=== PATIENT | male | born 1955 | race Caucasian/White ===

== ENCOUNTER 2018-06-17 19:57 | Inpatient (IN) | payer OTHER ==
[~2018-06-17] VITALS: Ht 177.8 cm; Wt 109.0 kg
[2018-06-17] MEDS ORDERED: ondansetron/PF 4mg/2ml inj IV ONE (20:20)
[2018-06-17 20:36] LABS: BASOPHILS # (AUTO) 0.1 X10'3 (0-0.2); BASOPHILS % (AUTO) 0.6 % (0-1); EOSINOPHILS # (AUTO) 0.4 X10'3 (0-0.9); EOSINOPHILS % (AUTO) 3.4 % (0-6); HEMATOCRIT 43.7 % (42.0-52.0); HEMOGLOBIN 15.2 g/dl (14.0-17.9); LYMPHOCYTES # (AUTO) 1.9 X10'3 (1.1-4.8); LYMPHOCYTES % (AUTO) 17.6 % (21-51); MEAN CORPUSCULAR HEMOGLOBIN 28.3 PG (27.0-31.0); MEAN CORPUSCULAR HGB CONC 34.7 % (33.0-36.5); MEAN CORPUSCULAR VOLUME 81.5 FL (78-98); MEAN PLATELET VOLUME 8.5 FL (7.4-10.4); MONOCYTES # (AUTO) 0.8 X10'3 (0-0.9); MONOCYTES % (AUTO) 7.5 % (2-12); NEUTROPHILS # (AUTO) 7.7 X10'3 (1.8-7.7); NEUTROPHILS % (AUTO) 70.9 % (42-75); PLATELET COUNT 226 X10'3 (140-440); RED BLOOD COUNT 5.37 X10'6 (4.70-6.10); RED CELL DISTRIBUTION WIDTH 13.7 % (11.5-14.5); WHITE BLOOD COUNT 10.9 X10'3 (4.5-11.0)
[2018-06-17 20:46] LABS: PARTIAL THROMBOPLASTIN TIME 24 SECONDS (22-32); PROTHROMBIN TIME 10.7 SECONDS (9.0-12.0)
[2018-06-17 20:49] LABS: ALANINE AMINOTRANSFERASE 46 U/L (12-78); ALBUMIN 4.1 G/DL (3.4-5.0); ALKALINE PHOSPHATASE 105 IU/L (46-116); ANION GAP 14 (8-16); ASPARTATE AMINO TRANSFERASE 23 U/L (10-37); BILIRUBIN,TOTAL 0.5 MG/DL (0.1-1.0); BLOOD UREA NITROGEN 22 MG/DL (7-18); BUN/CREATININE RATIO 14.8 (5.4-32.0); CALCIUM 9.6 MG/DL (8.5-10.1); CHLORIDE 102 MMOL/L (99-107); CREATININE 1.49 MG/DL (0.60-1.10); GLUCOSE 164 MG/DL (70-104); POTASSIUM 3.9 MMOL/L (3.5-5.1); SODIUM 141 MMOL/L (135-145); TOTAL CARBON DIOXIDE 25.2 MMOL/L (24-32); TOTAL PROTEIN 8.1 G/DL (6.4-8.2); eGFR 48 ML/MIN
[2018-06-17] MEDS ORDERED: sucralfate 1gm/10ml UD suspension PO STA (20:54)
[2018-06-17] MEDS ORDERED: LIDOcaine Viscous 15ml cup PO ONE (20:55)
[2018-06-17] MEDS ORDERED: mag hydrox/Alum hydrox/simeth 30ml oral suspension PO ONE (20:55)
[2018-06-17] MEDS ORDERED: normal saline 1000ML IV soln IVB ONE (21:10)
[2018-06-17] MEDS ORDERED: iohexol 350MG/ML 100ml bottle IV ONE (21:18)
[2018-06-17] MEDS: morphine 4 MG/ML inj SYRINge IV PRN (21:21)
[2018-06-17] MEDS ORDERED: HYDROcodone/acetaminophen 10/325mg tab PO ONE (22:00)
[2018-06-17] MEDS ORDERED: ketorolac trometh. 30mg/ml inj. IV ONE (22:00)
[2018-06-17] MEDS ORDERED: morphine 4 MG/ML inj SYRINge IV ONE (22:00)
[2018-06-17] MEDS ORDERED: HYDR-565 PO (22:02)
[2018-06-17 22:12] LABS: CLARITY,URINE CLEAR (Clear); COLOR,URINE YELLOW (Yellow); GLUCOSE, URINE NEGATIVE (Neg); KETONES,URINE TRACE mg/dl (Neg); LEUKOCYTE ESTERASE ,URINE NEGATIVE (Neg); NITRITES, URINE NEGATIVE (Neg); OCCULT BLOOD,URINE MODERATE (Neg); PROTEIN,URINE TRACE mg/dl (Neg); UROBILINOGEN,URINE 0.2 E.U/dL (0.2-1.0)
[2018-06-17 22:22] LABS: UA COLLECTION TYPE URINAL
[2018-06-17 22:23] LABS: WBC,URINE NONE SEEN /HPF (0-4)
[2018-06-17 22:24] LABS: BACTERIA,URINE NONE SEEN /HPF (Neg); RBC,URINE 0-2 /HPF (0-2); SQUAMOUS EPITHELIAL CELL,UR NONE SEEN /LPF (FEW)
[2018-06-18] VITALS (21 sets, daily range): BP systolic 103–193; BP diastolic 52–84
[2018-06-18] MEDS ORDERED: LISI10TA4 PO (01:03)
[2018-06-18] MEDS ORDERED: ATOR10TA PO ×2 (01:03→09:13)
[2018-06-18] MEDS ORDERED: GLIP10TA11 PO (01:03)
[2018-06-18] MEDS ORDERED: INSU100V30 SQ (01:03)
[2018-06-18] MEDS: morphine 4 MG/ML inj SYRINge IV PRN ×3 (02:21→19:08)
[2018-06-18] MEDS ORDERED: dextrose ORAL solution 15 GM/59 ML bottle PO PRN ×2 (04:15)
[2018-06-18] MEDS ORDERED: magnesium 1gm/100ml D5W IVPB 100 ML IV PRN (04:15)
[2018-06-18] MEDS ORDERED: potassium Cl 40MEQ/NS 500ml 500 ML IV PRN ×2 (04:15)
[2018-06-18] MEDS ORDERED: insulin Lispro (HumaLOG) vial - multi-dose SQ SCH (04:15)
[2018-06-18] MEDS ORDERED: acetaminophen 325mg tablet PO PRN (04:15)
[2018-06-18] MEDS ORDERED: ipratropium/albuterol 3ml nebule NEB PRN (04:15)
[2018-06-18] MEDS ORDERED: ondansetron/PF 4mg/2ml inj IV PRN ×2 (04:15→17:40)
[2018-06-18] MEDS ORDERED: dextrose 50%-water 50ml dispensing syringe IV PRN ×2 (04:15)
[2018-06-18] MEDS ORDERED: magnesium hydroxide 30ml (MOM) UD suspension PO PRN (04:15)
[2018-06-18] MEDS ORDERED: potassium Cl 20 mEq SR tablet PO PRN ×2 (04:15)
[2018-06-18] MEDS ORDERED: glucagon, human recombinant 1mg kit SUBCUT PRN (04:15)
[2018-06-18] MEDS ORDERED: morphine 4 MG/ML inj SYRINge IV PRN ×3 (04:15→17:40)
[2018-06-18] MEDS ORDERED: MESSAGE TO PHARMACY PO ONE (04:15)
[2018-06-18] MEDS ORDERED: magnesium 4gm in 100ml NS 100 ML IV PRN (04:15)
[2018-06-18] MEDS: normal saline 1000ml 1,000 ML IV SCH ×3 (05:30→21:05)
[2018-06-18] MEDS: K and/or MAG REPLACEMENT MC SCH (06:33)
[2018-06-18] MEDS: enoxaparin 40mg/0.4ml syringe SQ SCH (08:00)
[2018-06-18] MEDS: lisinopril 10 MG tablet PO SCH (08:26)
[2018-06-18] MEDS ORDERED: pneumococcal 23-VAL P-sac vacc 25 mcg/0.5ml vial IMVAC ONE (09:10)
[2018-06-18] MEDS ORDERED: LANTUS SQ (09:15)
[2018-06-18] MEDS ORDERED: iohexol 300 MG/1 ML 50ml polymer ONE (15:58)
[2018-06-18] MEDS ORDERED: sevoflurane 250ml liquid IH ONE (16:54)
[2018-06-18] MEDS ORDERED: midazolam 2 mg/2 ml injection ONE (16:58)
[2018-06-18] MEDS ORDERED: fentaNYL/PF 50MCG/1 ML 2ML syringe ONE (16:58)
[2018-06-18] MEDS ORDERED: propofol inj 20 ML IV ONE (16:58)
[2018-06-18] MEDS ORDERED: ringers solution, lacted 1,000 ML IV SCH (17:38)
[2018-06-18] MEDS ORDERED: proCHLORperazine 10 MG/2 ml inj IV PRN (17:40)
[2018-06-18] MEDS ORDERED: meperidine/PF 25mg/ml syringe IV PRN ×3 (17:40)
[2018-06-18] MEDS ORDERED: insulin glargine (Lantus) pen - multi-dose SQ SCH (21:00)
[2018-06-19 03:54] VITALS: BP 112/66
[2018-06-19] MEDS: normal saline 1000ml 1,000 ML IV SCH (04:49)
[2018-06-19 05:46] LABS: BASOPHILS # (AUTO) 0.1 X10'3 (0-0.2); BASOPHILS % (AUTO) 0.6 % (0-1); EOSINOPHILS # (AUTO) 0.2 X10'3 (0-0.9); EOSINOPHILS % (AUTO) 2.5 % (0-6); HEMATOCRIT 36.8 % (42.0-52.0); HEMOGLOBIN 12.8 g/dl (14.0-17.9); LYMPHOCYTES # (AUTO) 2.1 X10'3 (1.1-4.8); LYMPHOCYTES % (AUTO) 26.3 % (21-51); MEAN CORPUSCULAR HEMOGLOBIN 28.9 PG (27.0-31.0); MEAN CORPUSCULAR HGB CONC 34.8 % (33.0-36.5); MEAN CORPUSCULAR VOLUME 83.1 FL (78-98); MEAN PLATELET VOLUME 8.6 FL (7.4-10.4); MONOCYTES # (AUTO) 0.6 X10'3 (0-0.9); MONOCYTES % (AUTO) 7.7 % (2-12); NEUTROPHILS % (AUTO) 62.9 % (42-75); PLATELET COUNT 159 X10'3 (140-440); RED BLOOD COUNT 4.44 X10'6 (4.70-6.10)
[2018-06-19 06:31] LABS: ALANINE AMINOTRANSFERASE 26 U/L (12-78); ALBUMIN 2.9 G/DL (3.4-5.0); ALBUMIN/GLOBULIN RATIO 0.9 (1.1-1.5); ALKALINE PHOSPHATASE 71 IU/L (46-116); ANION GAP 6 (8-16); ASPARTATE AMINO TRANSFERASE 15 U/L (10-37); BILIRUBIN,TOTAL 0.4 MG/DL (0.1-1.0); BLOOD UREA NITROGEN 16 MG/DL (7-18); BUN/CREATININE RATIO 13.9 (5.4-32.0); CALCIUM 8.3 MG/DL (8.5-10.1); CHLORIDE 109 MMOL/L (99-107); CREATININE 1.15 MG/DL (0.60-1.10); GLUCOSE 117 MG/DL (70-104); MAGNESIUM 2.1 MG/DL (1.5-2.4); POTASSIUM 3.9 MMOL/L (3.5-5.1); SODIUM 141 MMOL/L (135-145); TOTAL CARBON DIOXIDE 26.3 MMOL/L (24-32); TOTAL PROTEIN 6.3 G/DL (6.4-8.2); eGFR 65 ML/MIN
[2018-06-19 07:05] VITALS: BP 125/73
[2018-06-19] MEDS: K and/or MAG REPLACEMENT MC SCH (07:39)
[2018-06-19] MEDS: lisinopril 10 MG tablet PO SCH (07:46)
[2018-06-19] MEDS: enoxaparin 40mg/0.4ml syringe SQ SCH (07:46)
[2018-06-19 11:12] VITALS: BP 132/68
== END 2018-06-19 11:31 | disposition home or self-care (01) | DRG 669 ==
LOC: ER 19:57 → ED HOLD 06-18 04:11 → CMPBEDREQ 06-18 05:42 → ORTHO 4S 06-18 06:00 → SUR 3N 06-18 18:51
PROVIDERS: ADMIT Family Medicine; ATTEND Internal Medicine
PROC: B32T1ZZ Computerized Tomography (CT Scan) of Left Pulmonary Artery using Low Osmolar Contrast (ICD-10-PCS; 2018-06-17)
PROC: B3201ZZ Computerized Tomography (CT Scan) of Thoracic Aorta using Low Osmolar Contrast (ICD-10-PCS; 2018-06-17)
PROC: B32S1ZZ Computerized Tomography (CT Scan) of Right Pulmonary Artery using Low Osmolar Contrast (ICD-10-PCS; 2018-06-17)
PROC: B4201ZZ Computerized Tomography (CT Scan) of Abdominal Aorta using Low Osmolar Contrast (ICD-10-PCS; 2018-06-17)
PROC: B4241ZZ Computerized Tomography (CT Scan) of Superior Mesenteric Artery using Low Osmolar Contrast (ICD-10-PCS; 2018-06-17)
PROC: B4281ZZ Computerized Tomography (CT Scan) of Bilateral Renal Arteries using Low Osmolar Contrast (ICD-10-PCS; 2018-06-17)
PROC: B4211ZZ Computerized Tomography (CT Scan) of Celiac Artery using Low Osmolar Contrast (ICD-10-PCS; 2018-06-17)
PROC: 0TC78ZZ Extirpation of Matter from Left Ureter, Via Natural or Artificial Opening Endoscopic (ICD-10-PCS; 2018-06-18)
PROC: BT1F1ZZ Fluoroscopy of Left Kidney, Ureter and Bladder using Low Osmolar Contrast (ICD-10-PCS; principal; 2018-06-18 16:54)
DX: N13.2 Hydronephrosis with renal and ureteral calculous obstruction (principal); J44.9 Chronic obstructive pulmonary disease, unspecified; E11.9 Type 2 diabetes mellitus without complications; E78.00 Pure hypercholesterolemia, unspecified; E78.5 Hyperlipidemia, unspecified; I10 Essential (primary) hypertension; I25.10 Atherosclerotic heart disease of native coronary artery without angina pectoris; N21.0 Calculus in bladder; N32.89 Other specified disorders of bladder; Z96.653 Presence of artificial knee joint, bilateral; E66.9 Obesity, unspecified; N40.0 Benign prostatic hyperplasia without lower urinary tract symptoms; Z28.21 Immunization not carried out because of patient refusal; Z88.5 Allergy status to narcotic agent; Z88.8 Allergy status to other drugs, medicaments and biological substances; Z79.899 Other long term (current) drug therapy; Z79.4 Long term (current) use of insulin; Z87.891 Personal history of nicotine dependence; Z80.43 Family history of malignant neoplasm of testis; Z82.49 Family history of ischemic heart disease and other diseases of the circulatory system; Z68.34 Body mass index [BMI] 34.0-34.9, adult
CPT/HCPCS: 96374; 96375; 96376; 99285; Z7506; 36415; 71045; 71275; 72192; 74174; 76000; 80053; 81001; 82948; 83036; 83735; 84484; 85025; 85610; 85730; 87070; 90732; 93005; 94760; A4402; C1758; C1769; J1650; J1815; J1885; J2250; J2270; J2405; J2704; J3010; J7030; J7120; Q9967

== ENCOUNTER 2020-03-01 08:50 | Outpatient (CLI) | payer BC ==
[~2020-03-01] VITALS: Ht 177.8 cm; Wt 107.0 kg
[~2020-03-01 08:50] MED LIST: ATOR10TA PO; GLIP10TA11 PO; INSU100V30 SQ; LANTUS SQ; LISI10TA4 PO
[2020-03-01] MEDS ORDERED: albuterol 2.5 MG/3 ML nebule NEB PRN (09:35)
== END 2020-03-01 23:59 | disposition home or self-care (01) ==
LOC: RT 08:50
PROVIDERS: ATTEND Internal Medicine Pulmonary Disease
DX: J44.9 Chronic obstructive pulmonary disease, unspecified (principal)
CPT/HCPCS: 94060; 94727; 94729; 94760

== ENCOUNTER 2020-09-01 11:33 | Day surgery (SDC) | payer BC ==
[2020-08-28 10:51] LABS: BASOPHILS # (AUTO) 0.1 X10'3 (0-0.2); BASOPHILS % (AUTO) 1.3 % (0-1); EOSINOPHILS # (AUTO) 0.3 X10'3 (0-0.9); EOSINOPHILS % (AUTO) 4.4 % (0-6); HEMATOCRIT 45.1 % (42.0-52.0); HEMOGLOBIN 15.6 g/dl (14.0-17.9); LYMPHOCYTES # (AUTO) 1.8 X10'3 (1.1-4.8); LYMPHOCYTES % (AUTO) 24.7 % (21-51); MEAN CORPUSCULAR HEMOGLOBIN 29.2 PG (27.0-31.0); MEAN CORPUSCULAR HGB CONC 34.7 g/dL (33.0-36.5); MEAN CORPUSCULAR VOLUME 84.2 FL (78-98); MEAN PLATELET VOLUME 8.2 FL (7.4-10.4); MONOCYTES # (AUTO) 0.7 X10'3 (0-0.9); MONOCYTES % (AUTO) 9.1 % (2-12); NEUTROPHILS # (AUTO) 4.4 X10'3 (1.8-7.7); NEUTROPHILS % (AUTO) 60.5 % (42-75); PLATELET COUNT 202 X10'3 (140-440); RED BLOOD COUNT 5.36 X10'6 (4.70-6.10); RED CELL DISTRIBUTION WIDTH 13.9 % (11.5-14.5); WHITE BLOOD COUNT 7.3 X10'3 (4.5-11.0)
[2020-08-28 11:04] LABS: ALBUMIN 3.9 G/DL (3.4-5.0); ANION GAP 8 (8-16); BLOOD UREA NITROGEN 13 MG/DL (7-18); BUN/CREATININE RATIO 13.1 (5.4-32.0); CALCIUM 9.5 MG/DL (8.5-10.1); CHLORIDE 105 MMOL/L (99-107); CREATININE 0.99 MG/DL (0.60-1.10); GLUCOSE 184 MG/DL (70-104); SODIUM 138 MMOL/L (135-145); TOTAL CARBON DIOXIDE 25.1 MMOL/L (24-32); eGFR 76 ML/MIN
[2020-08-28 11:05] LABS: PARTIAL THROMBOPLASTIN TIME 25 SECONDS (22-32)
[2020-09-01] VITALS (8 sets, daily range): BP systolic 125–147; BP diastolic 67–93
[~2020-09-01] VITALS: Ht 177.8 cm; Wt 112.9 kg
[~2020-09-01 11:33] MED LIST changes: +IPRA3AMP31 IH; -LISI10TA4 PO; +METF500T PO
[2020-09-01] MEDS ORDERED: NITR0.4T51 SL (12:04)
[2020-09-01] MEDS ORDERED: normal saline 1000ml 1,000 ML IV SCH (12:05)
[2020-09-01] MEDS ORDERED: diphenhydrAMINE 25mg capsule PO PRN (12:05)
[2020-09-01] MEDS ORDERED: LORazepam 0.5 MG tablet PO PRN (12:05)
[2020-09-01] MEDS ORDERED: LISI-600 PO (12:07)
[2020-09-01] MEDS ORDERED: ALBU18HF2 INH (12:07)
[2020-09-01] MEDS ORDERED: SEMA0.25 (12:13)
[2020-09-01] MEDS ORDERED: NPH,100V SQ (12:14)
[2020-09-01] MEDS ORDERED: UMEC1DIS (12:15)
[2020-09-01] MEDS ORDERED: nitroGLYCERIN-Tridil 50MG/D5W 250 ML IV ONE (13:32)
[2020-09-01] MEDS ORDERED: verapamil 2.5 mg/ml inj IV ONE (13:32)
[2020-09-01] MEDS ORDERED: diphenhydrAMINE 50 mg/ml inj ONE (13:32)
[2020-09-01] MEDS ORDERED: fentaNYL/PF 50MCG/1 ML 2ML syringe ONE (13:33)
[2020-09-01] MEDS ORDERED: heparin 1,000unit/ml 10ml vial 10 ML ONE (13:33)
[2020-09-01] MEDS ORDERED: iohexol 350MG/ML 100ml bottle IV ONE (13:33)
[2020-09-01] MEDS ORDERED: LIDOcaine 1% (10mg/ml)w/preservative injection 20ml MDV ONE (13:33)
[2020-09-01] MEDS ORDERED: midazolam 2 mg/2 ml injection ONE ×2 (13:33→13:51)
--- NOTE | 2020-09-01 17:10 | NUR ---
2 mL of air removed every 15 minutes from right radial Vasband starting at 1510. There were no signs of a hematoma or bleeding at any of these times or after removal of Vascband. Patient and his , Lea were educated on radial site care, signs of hematoma/bleeding/infection/shower/weight restrictions. Education regarding conscious sedation was also given, patients Lea is driving home. Patient was also informed of his follow up appt with Dr. Rider on 10/06/2020 at 1:20 pm. All questions have been answered at this time. Patient was wheeled out to the car and assisted in. All of patients belongings were taken with him.
== END 2020-09-01 17:10 | disposition home or self-care (01) ==
LOC: SSTAY O 11:33
PROVIDERS: ATTEND Internal Medicine Interventional Cardiology
DX: R94.39 Abnormal result of other cardiovascular function study (principal); R07.89 Other chest pain; I10 Essential (primary) hypertension; E78.5 Hyperlipidemia, unspecified; E11.59 Type 2 diabetes mellitus with other circulatory complications; J44.9 Chronic obstructive pulmonary disease, unspecified; I25.10 Atherosclerotic heart disease of native coronary artery without angina pectoris; Z79.01 Long term (current) use of anticoagulants; Z79.899 Other long term (current) drug therapy; Z87.891 Personal history of nicotine dependence; Z79.4 Long term (current) use of insulin; Z88.5 Allergy status to narcotic agent; Z88.8 Allergy status to other drugs, medicaments and biological substances; Z82.49 Family history of ischemic heart disease and other diseases of the circulatory system; Z72.89 Other problems related to lifestyle
CPT/HCPCS: 36415; 80048; 82948; 85025; 85610; 85730; 93005; 93458; 99152; C1769; C1894; J1200; J1644; J2001; J2250; J3010; Q9967; A4620; A5120; J3490

== ENCOUNTER 2021-04-11 07:38 | Day surgery (SDC) | payer BC ==
[2021-04-06 11:48] LABS: BASOPHILS # (AUTO) 0.1 X10'3 (0-0.2); BASOPHILS % (AUTO) 1.5 % (0-1); EOSINOPHILS # (AUTO) 0.3 X10'3 (0-0.9); EOSINOPHILS % (AUTO) 3.8 % (0-6); HEMATOCRIT 46.5 % (42.0-52.0); HEMOGLOBIN 16.5 g/dl (14.0-17.9); LYMPHOCYTES # (AUTO) 1.9 X10'3 (1.1-4.8); LYMPHOCYTES % (AUTO) 25.9 % (21-51); MEAN CORPUSCULAR HEMOGLOBIN 29.6 PG (27.0-31.0); MEAN CORPUSCULAR HGB CONC 35.4 g/dL (33.0-36.5); MEAN CORPUSCULAR VOLUME 83.6 FL (78-98); MEAN PLATELET VOLUME 8.7 FL (7.4-10.4); MONOCYTES # (AUTO) 0.6 X10'3 (0-0.9); MONOCYTES % (AUTO) 8.3 % (2-12); NEUTROPHILS # (AUTO) 4.5 X10'3 (1.8-7.7); NEUTROPHILS % (AUTO) 60.5 % (42-75); PLATELET COUNT 191 X10'3 (140-440); RED BLOOD COUNT 5.56 X10'6 (4.70-6.10); RED CELL DISTRIBUTION WIDTH 13.6 % (11.5-14.5); WHITE BLOOD COUNT 7.5 X10'3 (4.5-11.0)
[2021-04-06 12:07] LABS: PARTIAL THROMBOPLASTIN TIME 26 SECONDS (22-32)
[2021-04-06 12:09] LABS: ALANINE AMINOTRANSFERASE 42 U/L (12-78); ALBUMIN 3.8 G/DL (3.4-5.0); ALBUMIN/GLOBULIN RATIO 0.9 (1.1-1.5); ALKALINE PHOSPHATASE 129 IU/L (46-116); ANION GAP 9 (8-16); BILIRUBIN,TOTAL 0.6 MG/DL (0.1-1.0); BLOOD UREA NITROGEN 17 MG/DL (7-18); BUN/CREATININE RATIO 17.2 (5.4-32.0); CHLORIDE 106 MMOL/L (99-107); CREATININE 0.99 MG/DL (0.60-1.10); SODIUM 139 MMOL/L (135-145); TOTAL CARBON DIOXIDE 24.3 MMOL/L (24-32); TOTAL PROTEIN 7.9 G/DL (6.4-8.2); eGFR 76 ML/MIN
[2021-04-06 12:19] LABS: GLUCOSE 206 MG/DL (70-104); POTASSIUM 4.1 MMOL/L (3.5-5.1)
[2021-04-06 12:32] LABS: ASPARTATE AMINO TRANSFERASE 22 U/L (10-37)
[~2021-04-11] VITALS: Ht 177.8 cm; Wt 106.8 kg
[2021-04-11] VITALS (13 sets, daily range): BP systolic 122–157; BP diastolic 61–86
[~2021-04-11 07:38] MED LIST changes: +ALBU18HF2 INH; -GLIP10TA11 PO; -LANTUS SQ; +LISI20TA28 PO; +NITR0.4T51 SL; +NPH,100V SQ; +SEMA0.25; +UMEC1DIS
[2021-04-11] MEDS ORDERED: nitroGLYCERIN 0.4mg SUBLingual tab SL PRN (08:15)
[2021-04-11] MEDS ORDERED: LORazepam 0.5 MG tablet PO PRN (08:15)
[2021-04-11] MEDS ORDERED: normal saline 1,000 ML IV SCH (08:15)
[2021-04-11] MEDS ORDERED: diphenhydrAMINE 25mg capsule PO PRN (08:15)
[2021-04-11] MEDS ORDERED: BIOTIN PO (08:37)
[2021-04-11] MEDS ORDERED: IBUP-1986 PO (08:37)
[2021-04-11] MEDS ORDERED: ASPI-1071 PO (08:37)
[2021-04-11] MEDS ORDERED: OXYGEN NASALCANN (08:37)
[2021-04-11] MEDS ORDERED: LIDOcaine 1% (10mg/ml)w/preservative injection 20ml MDV ONE (08:49)
[2021-04-11] MEDS ORDERED: fentaNYL/PF 50MCG/1 ML 2ML syringe ONE ×2 (08:49→10:22)
[2021-04-11] MEDS ORDERED: midazolam 1 mg/ML 2ml injection ONE ×2 (08:49→10:21)
[2021-04-11] MEDS ORDERED: iohexol 350MG/ML 100ml bottle IV ONE (08:49)
[2021-04-11] MEDS ORDERED: iohexol 350 MG/ML 50ML vial IV ONE (08:49)
[2021-04-11] MEDS ORDERED: heparin 1,000 UNITS/NS 500ml 500 ML ONE ×2 (08:50)
[2021-04-11] MEDS ORDERED: OXAZEpam 15mg capsule PO PRN (15:40)
[2021-04-11] MEDS ORDERED: proCHLORperazine 10 MG/2 ml inj IV PRN (15:40)
[2021-04-11] MEDS ORDERED: HYDROcodone/acetaminophen 5mg/325mg tablet PO PRN (15:40)
[2021-04-11] MEDS ORDERED: ondansetron/PF 4mg/2ml inj IV PRN (15:40)
[2021-04-11] MEDS ORDERED: HYDROcodone/acetaminophen 10/325mg tab PO PRN (15:40)
[2021-04-11] MEDS ORDERED: pneumococcal 23-VAL P-sac vacc 25 mcg/0.5ml vial IMVAC ONE (16:30)
[2021-04-12 09:53] LABS: ISTAT Hct MIX 42 %PCV (42-52); ISTAT O2 SATURATION MIX VENOUS 74 % (60-80); ISTAT SOURCE VEN
== END 2021-04-11 18:10 | disposition home or self-care (01) ==
LOC: SSTAY O 07:38
PROVIDERS: ATTEND Internal Medicine Cardiovascular Disease
DX: R94.39 Abnormal result of other cardiovascular function study (principal); R06.09 Other forms of dyspnea; I25.10 Atherosclerotic heart disease of native coronary artery without angina pectoris; E11.9 Type 2 diabetes mellitus without complications; J44.9 Chronic obstructive pulmonary disease, unspecified; M13.88 Other specified arthritis, other site; E78.5 Hyperlipidemia, unspecified; E66.9 Obesity, unspecified; Z68.33 Body mass index [BMI] 33.0-33.9, adult; Z79.01 Long term (current) use of anticoagulants; Z79.899 Other long term (current) drug therapy; Z88.5 Allergy status to narcotic agent; Z88.8 Allergy status to other drugs, medicaments and biological substances; Z96.653 Presence of artificial knee joint, bilateral; Z87.891 Personal history of nicotine dependence
CPT/HCPCS: 36415; 71046; 80053; 82803; 82948; 85014; 85025; 85610; 85730; 93460; 99152; 99153; C1760; C1769; J1644; J2001; J2250; J3010; J7030; Q0163; Q9967; A4620; A6258; C1751

== ENCOUNTER 2022-11-21 10:56 | Emergency (ER) | payer BC, MEDICARE ==
[~2022-11-21] VITALS: Ht 177.8 cm; Wt 100.0 kg
[~2022-11-21 10:56] MED LIST changes: +ASPI-1071 PO; -ATOR10TA PO; +BIOTIN PO; +IBUP-1986 PO; -LISI20TA28 PO; -METF500T PO; -NPH,100V SQ; +OXYGEN NASALCANN; -UMEC1DIS
[2022-11-21 11:07] VITALS: BP 154/82
[2022-11-21] MEDS ORDERED: HYDROcodone/acetaminophen 5mg/325mg tablet PO ONE (12:10)
== END 2022-11-21 13:04 | disposition home or self-care (01) ==
LOC: ER 10:56
DX: S66.812A Strain of other specified muscles, fascia and tendons at wrist and hand level, left hand, initial encounter (principal); I25.10 Atherosclerotic heart disease of native coronary artery without angina pectoris; E78.00 Pure hypercholesterolemia, unspecified; I10 Essential (primary) hypertension; J44.9 Chronic obstructive pulmonary disease, unspecified; E11.9 Type 2 diabetes mellitus without complications; Z79.82 Long term (current) use of aspirin; Z79.899 Other long term (current) drug therapy; Z79.4 Long term (current) use of insulin; Z88.5 Allergy status to narcotic agent; Z88.8 Allergy status to other drugs, medicaments and biological substances; W01.0XXA Fall on same level from slipping, tripping and stumbling without subsequent striking against object, initial encounter; Y93.89 Activity, other specified; Y92.89 Other specified places as the place of occurrence of the external cause; Y99.8 Other external cause status
CPT/HCPCS: 29125; 73110; 99284

== ENCOUNTER 2024-09-02 09:35 | Outpatient (CLI) | payer MEDICARE ==
[~2024-09-02 09:35] MED LIST changes: -INSU100V30 SQ; +INSU100V64 SQ
== END 2024-09-02 23:59 | disposition home or self-care (01) ==
LOC: RAD 09:35
PROVIDERS: ATTEND Nurse Practitioner
DX: N23 Unspecified renal colic (principal)
CPT/HCPCS: 76700; 76770

== ENCOUNTER 2024-09-04 10:23 | Emergency (ER) | payer MEDICARE ==
[~2024-09-04] VITALS: Ht 177.8 cm; Wt 107.6 kg
[2024-09-04 11:21] LABS: BILIRUBIN,URINE NEGATIVE (Neg); CLARITY,URINE CLEAR (Clear); COLOR,URINE YELLOW (Yellow); GLUCOSE, URINE >=1000 mg/dl (Neg); KETONES,URINE NEGATIVE (Neg); LEUKOCYTE ESTERASE ,URINE NEGATIVE (Neg); NITRITES, URINE NEGATIVE (Neg); OCCULT BLOOD,URINE NEGATIVE (Neg); PROTEIN,URINE NEGATIVE (Neg); UROBILINOGEN,URINE 0.2 E.U/dL (0.2-1.0)
[2024-09-04 11:28] LABS: UA COLLECTION TYPE CLN CATCH MIDSTREAM
[2024-09-04 11:29] LABS: BACTERIA,URINE NONE SEEN /HPF (Neg); MUCUS STRANDS NONE SEEN /LPF (Neg); RBC,URINE 0-2 /HPF (0-2); SQUAMOUS EPITHELIAL CELL,UR NONE SEEN /LPF (FEW)
[2024-09-04] MEDS: ibuprofen tablet 400 MG TABLET PO ONE (12:42)
[2024-09-04] MEDS: acetaminophen 325mg tablet PO STA (12:43)
[2024-09-04] MEDS: morphine 4 MG/ML inj SYRINge IV STA (13:17)
[2024-09-04 13:36] LABS: BASOPHILS # (AUTO) 0.1 X10'3 (0-0.2); BASOPHILS % (AUTO) 1.2 % (0-1); EOSINOPHILS # (AUTO) 0.3 X10'3 (0-0.9); EOSINOPHILS % (AUTO) 4.1 % (0-6); HEMATOCRIT 50.9 % (42.0-52.0); HEMOGLOBIN 17.3 g/dl (14.0-17.9); LYMPHOCYTES # (AUTO) 1.8 X10'3 (1.1-4.8); LYMPHOCYTES % (AUTO) 26.3 % (21-51); MEAN CORPUSCULAR HEMOGLOBIN 29.3 PG (27.0-31.0); MEAN CORPUSCULAR VOLUME 86.3 FL (78-98); MEAN PLATELET VOLUME 8.3 FL (7.4-10.4); MONOCYTES # (AUTO) 0.6 X10'3 (0-0.9); MONOCYTES % (AUTO) 8.4 % (2-12); NEUTROPHILS # (AUTO) 4.1 X10'3 (1.8-7.7); PLATELET COUNT 191 X10'3 (140-440); RED CELL DISTRIBUTION WIDTH 14.6 % (11.5-14.5); WHITE BLOOD COUNT 6.9 X10'3 (4.5-11.0)
[2024-09-04 13:52] LABS: ALANINE AMINOTRANSFERASE 26 U/L (12-78); ALKALINE PHOSPHATASE 99 IU/L (46-116); ANION GAP 6 (8-16); ASPARTATE AMINO TRANSFERASE 20 U/L (10-37); BILIRUBIN,TOTAL 0.8 MG/DL (0.1-1.0); BLOOD UREA NITROGEN 13 MG/DL (7-18); BUN/CREATININE RATIO 11.5 (10.0-20.0); CALCIUM 9.5 MG/DL (8.5-10.1); CHLORIDE 106 MMOL/L (99-107); CREATININE 1.13 MG/DL (0.60-1.10); GLUCOSE 105 MG/DL (70-104); POTASSIUM 4.2 MMOL/L (3.5-5.1); SODIUM 140 MMOL/L (135-145); TOTAL CARBON DIOXIDE 28.4 MMOL/L (24-32); TOTAL PROTEIN 8.2 G/DL (6.4-8.2); eCRCL 65 ML/MIN; eGFR 65 ML/MIN
[2024-09-04] MEDS ORDERED: iohexol 300mg/ml 100ml inj. ONE (13:55)
[2024-09-04] MEDS ORDERED: HYDR-3973 PO (15:29)
[2024-09-04 15:45] VITALS: BP 142/68; PULSE 77; RESP 16; TEMP 98.1; O2SAT 99
== END 2024-09-04 15:46 | disposition home or self-care (01) ==
LOC: ER 10:24
DX: M54.59 Other low back pain (principal); N20.0 Calculus of kidney; E78.00 Pure hypercholesterolemia, unspecified; I25.10 Atherosclerotic heart disease of native coronary artery without angina pectoris; I10 Essential (primary) hypertension; E11.9 Type 2 diabetes mellitus without complications; J44.9 Chronic obstructive pulmonary disease, unspecified; Z88.5 Allergy status to narcotic agent; Z79.1 Long term (current) use of non-steroidal anti-inflammatories (NSAID); Z79.82 Long term (current) use of aspirin; Z79.4 Long term (current) use of insulin; Z79.899 Other long term (current) drug therapy; Z87.442 Personal history of urinary calculi
CPT/HCPCS: 36415; 74176; 80053; 81001; 83605; 85025; 87088; 99284; Q9967